=== PATIENT | male | born 1955 | race Caucasian/White ===

== ENCOUNTER 2017-01-25 20:29 | Emergency (ER) | payer OTHER ==
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
[2017-01-25 22:58] VITALS: BP 128/82
== END 2017-01-25 22:58 | disposition home or self-care (01) ==
LOC: ER 20:29
DX: M54.2 Cervicalgia (principal); V43.52XA Car driver injured in collision with other type car in traffic accident, initial encounter; E78.00 Pure hypercholesterolemia, unspecified
CPT/HCPCS: 99283